=== PATIENT | female | born 2000 | race Hispanic/Latino ===

== ENCOUNTER 2020-07-07 21:44 | Emergency (ER) | payer SELFPAY ==
[~2020-07-07 21:44] MED LIST: CIPROFLOXACN500 MG PO; NO; NO HOME MEDS; ZOFRAN4 MG/TAB PO
[2020-07-09] MEDS ORDERED: ONDANSETRON4 MG PO (20:31)
[2020-07-09] MEDS ORDERED: CIPROFLOXACN500 MG PO (20:31)
== END 2020-07-07 23:08 | disposition home or self-care (01) | DRG 951 ==
LOC: ED 21:44 → LWOBS 23:08
DX: Z53.21 Procedure and treatment not carried out due to patient leaving prior to being seen by health care provider (principal)

== ENCOUNTER 2024-04-22 08:38 | Emergency (ER) | payer SELFPAY ==
[2024-04-22] VITALS (8 sets, daily range): BP systolic 95–112; BP diastolic 59–69
[~2024-04-22] VITALS: Ht 162.6 cm; Wt 58.9 kg
[~2024-04-22 08:38] MED LIST changes: +ONDANSETRON4 MG PO
[2024-04-22 09:08] LABS: BASO% 0.7 % (0-3); EOS% 6.5 % (0-8); IMMATURE GRANULOCYTES 0.1 % (0.0-5.0); LYMPH% 15.1 % (15-41); MEAN CORPUSCULAR HGB 25.5 pG CALC (26.0-32.0); MONO% 11.2 % (2-13); NEUT# 5.5 thou/uL (2.00-7.15); NEUT% 66.4 % (42-76); RED BLOOD COUNT 4.78 mill/uL (4.20-5.60); RED CELL DISTRI WIDTH 13.9 % (11.5-15.5)
[2024-04-22 09:13] LABS: HEMATOCRIT 39.3 % (37.0-47.0); HEMOGLOBIN 12.2 g/dl (12.0-16.0); MEAN CELL VOLUME 82.2 fL CALC (80.0-100.0)
[2024-04-22] MEDS ORDERED: predniSONE 20 MG/TAB PO ONE (09:15)
[2024-04-22] MEDS ORDERED: IPRATROPIUM-Albuterol 0.5MG-2.5MG/3 ML NEB ONE ×2 (09:15→09:20)
[2024-04-22] MEDS ORDERED: IBUPROFEN 200 MG/TAB PO ONE (09:20)
[2024-04-22 09:45] LABS: ANION GAP 9 (6-22 (CALC)); BUN 12 mg/dL (7-17); BUN/CREATININE RATIO 14 (12-20 (CALC)); CARBON DIOXIDE 27 mmol/l (22-30); CHLORIDE 107 mmol/l (95-108); CREATININE 0.9 mg/dL (0.5-1.0); ESTIMATED GFR 92 ML/MIN (>=90 (CALC)); POTASSIUM 3.8 mmol/l (3.5-5.1); SODIUM 139 mmol/l (137-146)
[2024-04-22] MEDS ORDERED: ZPAK PO (10:05)
[2024-04-22] MEDS ORDERED: PREDNISONE50 MG PO (10:05)
[2024-04-22] MEDS ORDERED: VENTOLIN HFA108 MCG PO (10:05)
== END 2024-04-22 10:29 | disposition home or self-care (01) | DRG 153 ==
LOC: ED 08:38
PROVIDERS: Family Medicine
DX: J06.9 Acute upper respiratory infection, unspecified (principal); Z20.822 Contact with and (suspected) exposure to COVID-19